=== PATIENT | female | born 1985 | race Caucasian/White ===

== ENCOUNTER 2023-03-15 17:06 | Emergency (ER) | payer OTHER ==
[~2023-03-15] VITALS: Ht 167.6 cm; Wt 105.0 kg
[2023-03-15 17:17] VITALS: BP 154/86
[2023-03-15] MEDS ORDERED: ACETAMINOPHEN 325MG TABLET PO ONE (17:30)
[2023-03-15] MEDS ORDERED: IBUP-2028 MT (18:29)
== END 2023-03-15 20:03 | disposition home or self-care (01) ==
LOC: ER 17:06
DX: S92.501A Displaced unspecified fracture of right lesser toe(s), initial encounter for closed fracture (principal); M79.89 Other specified soft tissue disorders; X58.XXXA Exposure to other specified factors, initial encounter; Y93.89 Activity, other specified; Y92.89 Other specified places as the place of occurrence of the external cause; Y99.8 Other external cause status
CPT/HCPCS: 29515; 73630; 81025; 99283; Z7610

== ENCOUNTER 2024-09-27 01:50 | Emergency (ER) | payer OTHER ==
[~2024-09-27] VITALS: Ht 172.7 cm; Wt 109.0 kg
[~2024-09-27 01:50] MED LIST: IBUP-2028 MT
[2024-09-27 02:04] VITALS: O2SAT 100
[2024-09-27] MEDS: ACETAMINOPHEN 325MG TABLET PO ONE (03:20)
[2024-09-27 03:25] LABS: CLARITY URINE CLEAR (CLEAR); COLOR URINE YELLOW (YELLOW); GLUCOSE URINE NEGATIVE (NEGATIVE); KETONES URINE TRACE (NEGATIVE); LEUKOCYTE ESTERASE URINE 1+ (NEGATIVE); NITRITE URINE NEGATIVE (NEGATIVE); OCCULT BLOOD URINE NEGATIVE (NEGATIVE); PROTEIN URINE NEGATIVE (NEGATIVE); SPECIFIC GRAVITY URINE 1.025 (1.005-1.030); UROBILINOGEN URINE 0.2 E.U./dL (0.2-1.0)
[2024-09-27 03:29] LABS: HCG SCREEN NEGATIVE
[2024-09-27 05:06] LABS: RBC URINE 0-2 /hpf (0-2); WBC URINE 0-2 /hpf (0-2)
[2024-09-27 05:07] LABS: SQUAMOUS EPITHELIAL CELL URINE FEW /lpf (RARE/1+)
[2024-09-27 05:08] LABS: BACTERIA URINE NONE SEEN
[2024-09-27] MEDS: CEPHALEXIN 250MG CAPSULE PO NR (06:15)
[2024-09-27] MEDS ORDERED: ACET-2708 MT (06:17)
[2024-09-27] MEDS ORDERED: CEPH500C2 MT (06:17)
[2024-09-27 06:30] VITALS: BP 133/68; PULSE 75; RESP 18; TEMP 36.78072; O2SAT 99
== END 2024-09-27 12:33 | disposition home or self-care (01) ==
LOC: ER 01:50
DX: N89.9 Noninflammatory disorder of vagina, unspecified (principal); I10 Essential (primary) hypertension; Z00.00 Encounter for general adult medical examination without abnormal findings
CPT/HCPCS: 81003; 81025; 84703; 87210; 99284; 87591; Z7610